=== PATIENT | female | born 1985 | race Hispanic/Latino ===

== ENCOUNTER 2019-09-13 13:23 | Inpatient (IN) | payer BC ==
[~2019-09-13] VITALS: Ht 152.4 cm; Wt 60.8 kg
[2019-09-13] MEDS ORDERED: LACTATED RINGERS 1000ML 1,000 ML IV ONE (20:31)
[2019-09-13] MEDS ORDERED: LACTATED RINGERS 1000ML 1,000 ML IV PRN (20:42)
[2019-09-13 20:47] VITALS: BP 114/64
[2019-09-13 20:55] LABS: APPEARANCE,URINE Clear (CLEAR); BILIRUBIN,URINE Negative (NEGATIVE); COLOR,URINE Yellow (YELLOW); GLUCOSE, URINE (UA) Negative (NEGATIVE); KETONES,URINE 40 mg/dL (NEGATIVE); LEUKOCYTE ESTERASE ,URINE Small (NEGATIVE); NITRATE,URINE Negative (NEGATIVE); OCCULT BLOOD,URINE Negative (NEGATIVE); PH,URINE 6.5 (5.0-8.0); PROTEIN,URINE Negative (NEGATIVE)
[2019-09-13] MEDS: LACTATED RINGERS 1000ML 1,000 ML IV SCH (20:55)
[2019-09-13] MEDS ORDERED: OXYTOCIN-LR 20 UNITS/1000 ML 1,000 ML IV SCH (21:00)
[2019-09-13 21:12] LABS: HEMATOCRIT 34.3 % (36-48); MEAN CORPUSCULAR HGB CONC 32.4 g/dL (32.0-36.0); MEAN CORPUSCULAR VOLUME 89.6 fL (79-99); RED BLOOD CELL COUNT(AUTO) 3.83 MIL/uL (4.00-5.50); WHITE BLOOD COUNT (AUTO) 8.9 K/uL (4.8-10.8)
[2019-09-13 21:17] LABS: BACTERIA,URINE Few /HPF (None Seen); RBC,URINE 0-1 /HPF (0-1); SQUAMOUS EPITHELIAL CELL,UR Moderate /HPF (0-2)
[2019-09-13 21:18] LABS: MUCUS,URINE Few LPF (None Seen)
[2019-09-14] MEDS ORDERED: PREN-218 PO (00:30)
[2019-09-14] MEDS: LACTATED RINGERS 1000ML 1,000 ML IV SCH ×3 (02:45→20:39)
[2019-09-14] MEDS ORDERED: EPHEDRINE SULFATE 50 MG/ML AMPULE ONE (07:28)
[2019-09-14] MEDS ORDERED: ROPIVACAINE 0.2% 100ML VIAL 100 ML EP SCH (08:15)
[2019-09-14] MEDS ORDERED: ACETAMINOPHEN-CODEINE 300/30MG TAB PO PRN (10:30)
[2019-09-14] MEDS ORDERED: BENZOCAINE/LANOLIN/ALOE VERA 60 ML AEROSOL TP PRN (10:30)
[2019-09-14] MEDS ORDERED: DIPH,PERTUSS(ACELL),TET VAC/PF 0.5 ML VIAL IM PRN (10:30)
[2019-09-14] MEDS ORDERED: MEASLES/MUMPS/RUBELLA VACCINE, LIVE 0.5 ML/VIAL SQ PRN (10:30)
[2019-09-14] MEDS ORDERED: ACETAMINOPHEN 325 MG TAB PO PRN (10:30)
[2019-09-14] MEDS ORDERED: LANOLIN 30GM OINTMENT TP PRN (10:30)
[2019-09-14] MEDS ORDERED: WITCH HAZEL 1 PAD TP PRN (10:30)
[2019-09-14] MEDS ORDERED: METHYLERGONOVINE MALEATE 0.2 MG/1 ML ML ONE (10:52)
[2019-09-14] MEDS ORDERED: MISOPROSTOL 200 MCG TABLET ONE (10:52)
[2019-09-14] MEDS ORDERED: MISOPROSTOL 200 MCG TABLET VG SCH (11:15)
[2019-09-14] MEDS ORDERED: OXYTOCIN-LR 20 UNITS/1000 ML 1,000 ML IV SCH (11:15)
[2019-09-14] MEDS ORDERED: METHYLERGONOVINE MALEATE 0.2 MG/1 ML ML IM SCH (11:15)
[2019-09-14] MEDS ORDERED: ACETAMINOPHEN EXTRA STRENGTH 500 MG TABLET PO SCH (12:30)
[2019-09-14] MEDS: CEFAZOLIN SODIUM 1 GM VIAL IVP SCH ×2 (12:42→20:39)
[2019-09-14 13:19] VITALS: BP 121/78
[2019-09-14 16:20] VITALS: BP 114/56
[2019-09-14] MEDS: IBUPROFEN 600 MG TABLET PO PRN (17:31)
[2019-09-14 19:40] VITALS: BP 118/71
[2019-09-14] MEDS: DOCUSATE SODIUM 100 MG CAP PO SCH (20:40)
[2019-09-14 23:20] VITALS: BP 134/71
[2019-09-15] MEDS: LACTATED RINGERS 1000ML 1,000 ML IV SCH (03:10)
[2019-09-15 03:33] VITALS: BP 119/74
[2019-09-15] MEDS: CEFAZOLIN SODIUM 1 GM VIAL IVP SCH (04:33)
[2019-09-15 05:25] LABS: HEMATOCRIT 30.5 % (36-48); MEAN CORPUSCULAR HEMOGLOBIN 29.3 pg (27.0-33.0); MEAN CORPUSCULAR HGB CONC 32.1 g/dL (32.0-36.0); RED BLOOD CELL COUNT(AUTO) 3.35 MIL/uL (4.00-5.50); RED CELL DISTRIBUTION WIDTH 16.9 % (11.0-15.5); WHITE BLOOD COUNT (AUTO) 9.8 K/uL (4.8-10.8)
[2019-09-15 07:08] VITALS: BP 118/68
--- NOTE | 2019-09-15 07:15 | NUR ---
[facility] [employer] [facility] HAD ROUNDED AND WAS INFORMED BY REPORT THAT PATIENT COULD BE DISCHARGE IF AFEBRILE BY 1600. PATIENT IS AFEBRILE AT THIS TIME.
--- NOTE | 2019-09-15 07:50 | NUR ---
PIV INFUSING AT KVO AND IV SITE IS WNL. PATIENT STATES HAVING PAIN OF 3 ON SCALE OF 0-10. WILL MEDICATE WITH MOTRIN.
[2019-09-15] MEDS: DOCUSATE SODIUM 100 MG CAP PO SCH (08:23)
[2019-09-15] MEDS: IBUPROFEN 600 MG TABLET PO PRN (08:26)
[2019-09-15 11:08] VITALS: BP 105/56
--- NOTE | 2019-09-15 11:15 | NUR ---
PATIENT REMAINS AFEBRILE AND DENIES PAIN.
[2019-09-15 13:11] LABS: HEPATITIS Bs ANTIGEN SCREEN P Negative (Negative)
--- NOTE | 2019-09-15 13:20 | NUR ---
PATIENT WAS GIVEN DISCHARGE INSTRUCTIONS AND PIV WAS REMOVED FOR PATIENT TO SHOWER PER PATIENT REQUEST. PATIENT HAS INSTRUCTED ON NEED TO HOLD DISCHARGE UNTIL 1600 TO MAKE SURE SHE HAS NO FEVER FOR 24 HOURS. VERBALIZED UNDERSTANDING.
--- NOTE | 2019-09-15 16:00 | NUR ---
PATIENT REMAINS AFEBRILE AND WAS DISCHARGED. DISCHARGED AND PATIENT INDICATED WANTING TO TAKE SHOWER BEFORE GOING HOME.
[2019-09-15 16:03] VITALS: BP 133/76
--- NOTE | 2019-09-15 16:40 | NUR ---
PATIENT WAS TAKEN VIA W/C TO [facility] IN [place]. PATIENT IS STABLE AND DENIES PAIN.
== END 2019-09-15 16:40 | disposition home or self-care (01) | DRG 807 ==
LOC: EDSTATUS 20:07 → LDH 20:09 → WSH 09-14 13:10
PROVIDERS: ADMIT Obstetrics & Gynecology; ATTEND Obstetrics & Gynecology
PROC: 10E0XZZ Delivery of Products of Conception, External Approach (ICD-10-PCS; principal; 2019-09-15)
PROC: 0HQ9XZZ Repair Perineum Skin, External Approach (ICD-10-PCS; 2019-09-15)
PROC: 3E033VJ Introduction of Other Hormone into Peripheral Vein, Percutaneous Approach (ICD-10-PCS; 2019-09-15)
PROC: 10907ZC Drainage of Amniotic Fluid, Therapeutic from Products of Conception, Via Natural or Artificial Opening (ICD-10-PCS; 2019-09-15)
PROC: 3E0R3BZ Introduction of Anesthetic Agent into Spinal Canal, Percutaneous Approach (ICD-10-PCS; 2019-09-15)
PROC: 00HU33Z Insertion of Infusion Device into Spinal Canal, Percutaneous Approach (ICD-10-PCS; 2019-09-15)
PROC: 3E0234Z Introduction of Serum, Toxoid and Vaccine into Muscle, Percutaneous Approach (ICD-10-PCS; 2019-09-15)
PROC: 3E0134Z Introduction of Serum, Toxoid and Vaccine into Subcutaneous Tissue, Percutaneous Approach (ICD-10-PCS; 2019-09-15)
DX: O70.0 First degree perineal laceration during delivery (principal); Z37.0 Single live birth; Z23 Encounter for immunization; Z3A.40 40 weeks gestation of pregnancy
CPT/HCPCS: 36415; 81001; 85027; 86592; 86850; 86900; 86901; 87340; A4314; G0378; J0690; J2210; J2590; J3490; J7120